=== PATIENT | female | born 1960 | race Caucasian/White ===

== ENCOUNTER 2019-02-25 17:52 | Emergency (ER) | payer MEDICAID ==
[~2019-02-25] VITALS: Ht 154.9 cm; Wt 80.9 kg
[2019-02-25 17:57] VITALS: Ht 154.9 cm; Wt 80.9 kg
[2019-02-25 19:55] VITALS: BP 140/96
== END 2019-02-25 19:55 | disposition home or self-care (01) ==
LOC: ED 17:52
DX: N61.1 Abscess of the breast and nipple (principal); Z90.710 Acquired absence of both cervix and uterus
CPT/HCPCS: J2001

== ENCOUNTER 2019-02-28 12:42 | Emergency (ER) | payer MEDICAID ==
[~2019-02-28] VITALS: Ht 152.4 cm; Wt 80.7 kg
[2019-02-28 14:15] VITALS: BP 143/87
== END 2019-02-28 14:15 | disposition home or self-care (01) ==
LOC: ED 12:42
DX: L02.213 Cutaneous abscess of chest wall (principal); L03.313 Cellulitis of chest wall; Z90.710 Acquired absence of both cervix and uterus
CPT/HCPCS: J0696

== ENCOUNTER 2019-11-23 20:45 | Emergency (ER) | payer OTHER ==
[~2019-11-23] VITALS: Ht 154.9 cm; Wt 79.5 kg
[2019-11-23 21:23] VITALS: Ht 154.9 cm; Wt 79.5 kg
[2019-11-24 01:04] VITALS: BP 128/79
== END 2019-11-24 01:04 | disposition home or self-care (01) ==
LOC: ED 20:45
DX: S93.402A Sprain of unspecified ligament of left ankle, initial encounter (principal); Z90.710 Acquired absence of both cervix and uterus; W50.2XXA Accidental twist by another person, initial encounter; Y93.89 Activity, other specified; Y92.89 Other specified places as the place of occurrence of the external cause; Y99.8 Other external cause status
CPT/HCPCS: J1885